=== PATIENT | female | born 1980 | race Caucasian/White ===

== ENCOUNTER 2017-07-22 02:24 | Emergency (ER) | payer OTHER ==
[2015-04-24 12:28] VITALS: Ht 167.6 cm; Wt 83.9 kg
[~2017-07-22] VITALS: Ht 167.6 cm; Wt 83.9 kg
[~2017-07-22 02:24] MED LIST: ADD25XRPT PO; AMOX-362 PO; AMOX-559 PO; AMOX500T10 PO; AZIT-1 PO; CEPH500C24 PO; CODE118S5 PO; CYCL10TA29 PO; DIVA500T98 PO; DOCU240C67 PO; FLUC150T40 PO; FLUO-202 PO; HYDR-4309 PO; IBUP-56 PO; LOR5/325 PO; MECL25TA9 PO; METH-543 PO; METH4TAB66 PO; NO ROUTINE MEDS; ONDA4TAB PO; OXYC-865 PO; PER PO; PRED-1 PO; ROBC PO; TOPI-119 PO; TOPI25CA13 PO; TRAZ-156 PO
--- NOTE | 2017-07-22 02:35 | ER Report ---
History and Physical Time Seen By MD: 02:33 Hx. of Stated Complaint: bright red bleeding, pain, tear HPI/ROS CHIEF COMPLAINT: Rectal bleeding HISTORY OF PRESENT ILLNESS: 30 [id number] female presents to the ER complaining of rectal pain. Her and her were experimenting with a rectal twice. Apparently the rectal point was lost up in her rectum. Her was able to grab it and pull it out but had to wing sticking out of each side, which caused significant trauma as it was removed to her rectal area. She passed some clots and had some cecily red bleeding. Bleeding is apparently stopped. Patient notes no abdominal pain. She only notes rectal pain. REVIEW OF SYSTEMS: Respiratory: No cough, no dyspnea. Cardiovascular: No chest pain, no palpitations. Gastrointestinal: No vomiting, no abdominal pain. Musculoskeletal: No back pain. Allergies: Coded Allergies: iodine (Verified Allergy, Severe, FIRST AND SECOND DEGREE RODRIGUEZ, 07/22/17) latex (Verified Allergy, Severe, HIVES, 07/22/17) prochlorperazine (Verified Allergy, Intermediate, hives, 07/22/17) Home Meds Active Scripts Oxycodone Hcl/Acetaminophen (PERCOCET 5-325 MG TABLET) 1 Each Tablet, 1 EACH PO Q4-6H Y for PAIN, #12 Prov:BLANKA MARIN DO 07/22/17 Cephalexin 500 Mg Tab (KEFLEX 500 MG TAB) 500 Mg Tablet, 500 MG PO TID for infection, #20 TAB Prov:BLANKA MARNI DO 07/22/17 Ondansetron (ZOFRAN ODT) 4 Mg Tab.rapdis, 4 MG PO Q6H Y for NAUSEA/VOMITING, # 20 TAB.DENISE 0 Refills Prov:CHAPO MIX MD 07/16/17 Hydrocodone Bit/Acetaminophen (HYDROCODON-ACETAMINOPHEN 5-325) 1 Each Tablet, 1 EACH PO Q4H Y for PAIN, #15 TAB 0 Refills Prov:CHAPO MIX MD 07/16/17 Hx Smoking: Yes Smoking Status: Former Smoker Exposure to Second Hand Smoke?: No Hx Substance Use Disorder: No Hx Alcohol Use: Yes Constitutional Vital Sign - Last 24 Hours 07/22/17 07/22/17 02:29 03:25 Temp 98.0 Pulse 84 Resp 16 B/P (MAP) 145/114 138/73 (94) Pulse Ox 94 O2 Delivery Room Air Physical Exam General Appearance: The patient is alert, has no immediate need for airway protection and no current signs of toxicity. Eyes: Pupils equal and round no injection. Respiratory: Chest is non tender, lungs are clear to auscultation. Cardiac: regular rate and rhythm Gastrointestinal: Abdomen is soft and non tender, no masses, bowel sounds normal. Rectal exam: There was some bruising on each side of the rectum. There was no cecily bleeding. There was pain on insertion of the finger. There are no internal hemorrhoids noted Musculoskeletal: Neck: Neck is supple and non tender. Extremities have full range of motion and are non tender. Skin: No rashes or lesions. DIFFERENTIAL DIAGNOSIS: After history and physical exam differential diagnosis was considered for rectal trauma Medical Decision Making ED Course/Re-evaluation ED Course Patient was admitted to an examination room. H&P was done. The dental diagnoses was considered. On conical examination. Patient has rectal trauma. I doubt there is perforation. She has benign nonsurgical abdominal examination. Patient be covered with Keflex. She'll be given Percocet for pain. She is advised to take stool softeners and follow clear liquid diet for 24 hours. Patient cautioned a low threshold return for any worsening, especially fevers or increasing abdominal pain. She was referred to general surgery. Decision to Disposition Date: Jul 22, 2017 Decision to Disposition Time: 03:10 Depart Departure Latest Vital Signs Vital Signs Date Time Temp Pulse Resp B/P (MAP) Pulse Ox O2 Delivery O2 Flow Rate FiO2 07/22/17 03:25 138/73 (94) 07/22/17 02:29 98.0 84 16 94 Room Air Impression: Primary Impression: Rectal tear Condition: Improved Disposition: HOME OR SELF-CARE Referrals: PENNIE MILLER DO (PCP) JOSHUA WALTERS MD New Scripts Oxycodone Hcl/Acetaminophen (PERCOCET 5-325 MG TABLET) 1 Each Tablet 1 EACH PO Q4-6H Y for PAIN, #12 Prov: BLANKA MARIN DO 07/22/17 Cephalexin 500 Mg Tab (KEFLEX 500 MG TAB) 500 Mg Tablet 500 MG PO TID for infection, #20 TAB Prov: BLANKA MARIN DO 07/22/17 Patient Instructions: Anal Fissure (ED) Additional Instructions: Take a stool softener such as Colace 100 mg twice daily Follow clear liquid diet for 24 hours Soaking in a bathtub of moderately warm water to soothe the area will help or applying a heating pad to your perineum Return to the ER for any fever or increasing abdominal pain Follow-up with general surgery Dr Walters if symptoms persist past 3-5 days BLANKA MARIN DO Jul 22, 2017 02:35
[2017-07-22] MEDS ORDERED: CEPHALEXIN MONO 500 MG CAP PO ONE (03:10)
[2017-07-22] MEDS ORDERED: oxyCODONE/ACETAMIN 5/325MG TH 2 TAB/BOTTLE PO ONE (03:10)
[2017-07-22] MEDS ORDERED: CEPH500T7 PO (03:12)
[2017-07-22] MEDS ORDERED: OXYC-865 PO (03:12)
[2017-07-22 03:25] VITALS: BP 138/73
== END 2017-07-22 03:33 | disposition home or self-care (01) ==
LOC: ER 02:27
DX: S36.63XA Laceration of rectum, initial encounter (principal)
CPT/HCPCS: 99282

== ENCOUNTER 2017-08-13 11:38 | Emergency (ER) | payer OTHER ==
[2015-04-24 12:28] VITALS: Ht 167.6 cm; Wt 83.9 kg
[~2017-08-13] VITALS: Ht 167.6 cm; Wt 83.9 kg
[~2017-08-13 11:38] MED LIST changes: +CEPH500T7 PO
--- NOTE | 2017-08-13 11:50 | ER Report ---
History and Physical Time Seen By MD: 11:48 Hx. of Stated Complaint: RIGHT FLANK PAIN THAT RADIATES AROUND TO THE GROIN. SENT BY URGENT CARE HPI/ROS CHIEF COMPLAINT: Right flank pain HISTORY OF PRESENT ILLNESS: This is a 36-year-old female who presents to the emergency department for right flank pain. Patient states she was at urgent care this morning and was sent here for further evaluation for possible kidney stone. Patient states that over the last week she's had some suprapubic discomfort on the right side and now the pain would last 4 days has moved up to the right flank. Patient also states that she's had intermittent diarrhea with stool that looks like it's gotten coffee grounds in it. Patient also states that she does not feel that this was related to the recent rectal trauma that she had 2 weeks prior. Patient denies nausea, vomiting, fevers, aches, chills and no dysuria. REVIEW OF SYSTEMS: Constitutional: No fever, no chills. Eyes: No discharge. ENT: No sore throat. Cardiovascular: No chest pain, no palpitations. Respiratory: No cough, no shortness of breath. Gastrointestinal: As above. Genitourinary: No hematuria. Musculoskeletal: As above. Skin: No rashes. Neurological: No headache. Allergies: Coded Allergies: iodine (Verified Allergy, Severe, FIRST AND SECOND DEGREE RODRIGUEZ, 07/22/17) latex (Verified Allergy, Severe, HIVES, 07/22/17) prochlorperazine (Verified Allergy, Intermediate, hives, 07/22/17) Home Meds Discontinued Scripts Oxycodone Hcl/Acetaminophen (PERCOCET 5-325 MG TABLET) 1 Each Tablet, 1 EACH PO Q4-6H Y for PAIN, #12 Prov:BLANKA MARIN DO 07/22/17 Cephalexin 500 Mg Tab (KEFLEX 500 MG TAB) 500 Mg Tablet, 500 MG PO TID for infection, #20 TAB Prov:BLANKA MARIN DO 07/22/17 Ondansetron (ZOFRAN ODT) 4 Mg Tab.rapdis, 4 MG PO Q6H Y for NAUSEA/VOMITING, # 20 TAB.DENISE 0 Refills Prov:CHAPO MIX MD 07/16/17 Hydrocodone Bit/Acetaminophen (HYDROCODON-ACETAMINOPHEN 5-325) 1 Each Tablet, 1 EACH PO Q4H Y for PAIN, #15 TAB 0 Refills Prov:MARIA DEL ROSARIOCHAPO MD 07/16/17 Past Medical/Surgical History She has a past medical and surgical history of migraines, pneumonia, 2, 3 vaginal deliveries, depression, bipolar, anxiety, recent tooth extraction, tonsillectomy, moles removed. Reviewed Nurses Notes: Yes Hx Smoking: Yes Smoking Status: Former Smoker Exposure to Second Hand Smoke?: No Hx Substance Use Disorder: No Hx Alcohol Use: Yes Constitutional Vital Sign - Last 24 Hours 08/13/17 08/13/17 11:45 15:14 Temp 97.6 Pulse 82 73 Resp 16 B/P (MAP) 140/113 139/102 (114) Pulse Ox 95 95 O2 Delivery Room Air Room Air Physical Exam General Appearance: The patient is alert, has no immediate need for airway protection and no signs of toxicity. Eyes: Pupils equal and round no pallor or injection. ENT, Mouth: Mucous membranes are moist. Respiratory: There are no retractions, lungs are clear to auscultation. Cardiovascular: Regular rate and rhythm, no murmurs, clicks or rubs. Gastrointestinal: Abdomen is round and soft with tenderness to the suprapubic area and right upper and lower throat discomfort with palpation, no masses, bowel sounds normal. Neurological: Alert and oriented 4. Moving all extremities. Following all commands. No focal neuro deficits. Skin: Warm and dry, no rashes. Musculoskeletal: Neck is supple non tender. Right CVA tenderness. Extremities are nontender, nonswollen and have full range of motion. DIFFERENTIAL DIAGNOSIS: After history and physical exam differential diagnosis was considered for abdominal pain in a female including but not limited to ovarian cyst, pelvic inflammatory disease, ovarian torsion, urinary tract infection, and appendicitis, kidney stone. Medical Decision Making Data Points Result Diagram: 08/13/17 1208 08/13/17 1208 Laboratory Hematology Test 08/13/17 12:08 Red Blood Count 5.07 M/uL (4.17-5.56) Mean Corpuscular Volume 86.6 fL (80.0-96.0) Mean Corpuscular Hemoglobin 29.5 pg (26.0-33.0) Mean Corpuscular Hemoglobin Concent 34.1 g/dL (32.0-36.0) Red Cell Distribution Width 13.5 % (11.5-14.5) Mean Platelet Volume 8.1 fL (7.2-11.1) Neutrophils (%) (Auto) 52.5 % (39.4-72.5) Lymphocytes (%) (Auto) 38.4 % (17.6-49.6) Monocytes (%) (Auto) 6.1 % (4.1-12.4) Eosinophils (%) (Auto) 1.7 % (0.4-6.7) Basophils (%) (Auto) 1.3 % (0.3-1.4) Nucleated RBC Relative Count (auto) 0.6 /100WBC Neutrophils # (Auto) 3.2 K/uL (2.0-7.4) Lymphocytes # (Auto) 2.3 K/uL (1.3-3.6) Monocytes # (Auto) 0.4 K/uL (0.3-1.0) Eosinophils # (Auto) 0.1 K/uL (0.0-0.5) Basophils # (Auto) 0.1 K/uL (0.0-0.1) Nucleated RBC Absolute Count (auto) 0.04 K/uL Sodium Level 143 mmol/L (137-145) Potassium Level 3.6 mmol/L (3.5-5.0) Chloride Level 106 mmol/L (98-107) Carbon Dioxide Level 25 mmol/L (22-31) Blood Urea Nitrogen 10 mg/dl (7-18) Creatinine 0.70 mg/dl (0.52-1.04) Glomerular Filtration Rate Calc > 60.0 Random Glucose 85 mg/dl (75-110) Calcium Level 9.3 mg/dl (8.4-10.2) Total Bilirubin 0.6 mg/dl (0.2-1.3) Aspartate Amino Transf (AST/SGOT) 18 U/L (0-35) Alanine Aminotransferase (ALT/SGPT) 18 U/L (0-56) Alkaline Phosphatase 55 U/L (0-126) Total Protein 7.6 gm/dl (6.3-8.2) Albumin 4.2 g/dl (3.5-5.0) Chemistry Test 08/13/17 12:08 White Blood Count 6.0 k/uL (4.5-11.0) Red Blood Count 5.07 M/uL (4.17-5.56) Hemoglobin 15.0 g/dL (12.0-16.0) Hematocrit 43.9 % (34.0-47.0) Mean Corpuscular Volume 86.6 fL (80.0-96.0) Mean Corpuscular Hemoglobin 29.5 pg (26.0-33.0) Mean Corpuscular Hemoglobin Concent 34.1 g/dL (32.0-36.0) Red Cell Distribution Width 13.5 % (11.5-14.5) Platelet Count 303 K/uL (150-450) Mean Platelet Volume 8.1 fL (7.2-11.1) Neutrophils (%) (Auto) 52.5 % (39.4-72.5) Lymphocytes (%) (Auto) 38.4 % (17.6-49.6) Monocytes (%) (Auto) 6.1 % (4.1-12.4) Eosinophils (%) (Auto) 1.7 % (0.4-6.7) Basophils (%) (Auto) 1.3 % (0.3-1.4) Nucleated RBC Relative Count (auto) 0.6 /100WBC Neutrophils # (Auto) 3.2 K/uL (2.0-7.4) Lymphocytes # (Auto) 2.3 K/uL (1.3-3.6) Monocytes # (Auto) 0.4 K/uL (0.3-1.0) Eosinophils # (Auto) 0.1 K/uL (0.0-0.5) Basophils # (Auto) 0.1 K/uL (0.0-0.1) Nucleated RBC Absolute Count (auto) 0.04 K/uL Glomerular Filtration Rate Calc > 60.0 Calcium Level 9.3 mg/dl (8.4-10.2) Total Bilirubin 0.6 mg/dl (0.2-1.3) Aspartate Amino Transf (AST/SGOT) 18 U/L (0-35) Alanine Aminotransferase (ALT/SGPT) 18 U/L (0-56) Alkaline Phosphatase 55 U/L (0-126) Total Protein 7.6 gm/dl (6.3-8.2) Albumin 4.2 g/dl (3.5-5.0) EKG/Imaging Imaging PATIENT NAME: Venecia Alonso : 1980 MR: [id number] V: [id number] EXAM DATE: ORDERING PHYSICIAN: DUARTE CASTRO TECHNOLOGIST: [place] [facility] [place] Venecia Alonso : 1980 Visit/Account:[id number] Date of Sevice: 08/13/2017 COMPUTED TOMOGRAPHY OF THE Abdomen and Pelvis without CONTRAST INDICATION: Flank pain.. TECHNIQUE: Contiguous axial 2.[address] images were obtained through the abdomen and pelvis without contrast. Coronal and sagittal reformatted images were submitted. COMPARISON: None. FINDINGS: Lung bases: There is a calcified granuloma at the right lung base. Liver and hepatic vasculature: The right lobe of the liver is enlarged measuring just under 20 cm craniocaudal. The tip of the right lobe is blunted. Gallbladder and bile ducts: There are stones within the gallbladder. No biliary duct dilation. Spleen: A splenic calcification may reflect an old granulomatous process. Pancreas: Normal Adrenals: Normal Kidneys, ureters and bladder: There is a 7 mm stone in the proximal right ureter at the ureter-pelvic junction. Mild dilation of the collecting system on the right. Normal-appearing bladder. Retroperitoneum and aorta: Normal caliber aorta. Scattered atherosclerosis. GI tract, mesentery and peritoneum: No bowel obstruction. No free fluid or free air. A few mesenteric lymph nodes are mildly prominent in the right lower quadrant. Uterus and adnexa: Tubal ligation clips are noted. No abnormal fluid collection or mass. Bones and soft tissues: No acute osseous abnormality. There is a small fat- containing paraumbilical hernia. IMPRESSION: 7 mm calculus at the right results in mild calyceal dilation. One of the following dose optimization techniques was utilized in the performance of this exam: Automated exposure control; adjustment of the mA and/ or kV according to the patient's size; or use of an iterative reconstruction technique. Specific details can be referenced in the facility's radiology CT exam operational policy. Report Dictated By: Jackie Barajas MD at 08/13/2017 1:06 PM Report E-Signed By: Jackie Barajas MD at 08/13/2017 1:15 PM WSN:[id number] ED Course/Re-evaluation Clinical Indication for ER IV: IV Access ED Course The patient was admitted to room. History and physical were obtained. Differential diagnoses were considered. An IV was started. A CBC, CMP and UA were obtained which were unremarkable. A CT of the abdomen and pelvis were obtained showing a 7 mm right calculi at the ureteropelvic junction. I did review these results with the patient. I also contacted Dr. Hernandez a urologist in [place] regarding the patient's case he said that she would be fine going home that this is not something that she needs surgery for however she would need to follow-up with one of our local urologists. We didn't have urology on- call today therefore this is the rationale for calling [place] [facility]. The patient was given in the option of anti-inflammatories as well as pain medication which she declined she said she would take ibuprofen at home for the discomfort. The patient was instructed to follow-up with Dr. Navid Sykes this week patient expressed understanding and had no other questions or concerns and was discharged home. We did get the urinalysis results from urgent care which is showing no infection , with lots of blood, they also did a test which was negative, and negative for occult stool. Decision to Disposition Date: Aug 13, 2017 Decision to Disposition Time: 15:05 Depart Departure Latest Vital Signs Vital Signs Date Time Temp Pulse Resp B/P (MAP) Pulse Ox O2 Delivery O2 Flow Rate FiO2 08/13/17 15:14 73 139/102 (114) 95 Room Air 08/13/17 11:45 97.6 16 Impression: Primary Impression: Kidney stone Condition: Improved Disposition: HOME OR SELF-CARE Referrals: PENNIE MILLER DO (PCP) CHENTE FLYNN MD, ZACHARY D DO New Scripts No Active Prescriptions or Reported Meds Departure Forms: ER Transition Record, Medications Reconciliation, Patient Portal Information Patient Instructions: Kidney Stones (ED) Additional Instructions: Drink plenty of fluids. Get plenty of rest. Take 600-800mg ibuprofen every 6-8 hours. Follow up with Dr. Garner or Dr. Flynn this week for follow up. Please strain your urine to look for the stone. May return to ED for worsening symptoms. DUARTE CASTRO RADIATION / CHEMISTRY TECHNICIAN-BC Aug 13, 2017 11:50
[2017-08-13 12:20] LABS: PLATELET COUNT, AUTOMATED 303 K/uL (150-450)
--- NOTE | 2017-08-13 13:20 | RADIOLOGY IMAGING REPORT ---
FACILITY: [facility] PATIENT NAME: Venecia Alonso : 1980 MR: [id number] V: [id number] EXAM DATE: ORDERING PHYSICIAN: DUARTE CASTRO TECHNOLOGIST: Location: [facility] - [place] Patient: Venecia Alonso : 1980 Visit/Account:[id number] Date of Sevice: 08/13/2017 COMPUTED TOMOGRAPHY OF THE Abdomen and Pelvis without CONTRAST INDICATION: Flank pain.. TECHNIQUE: Contiguous axial 2.[address] images were obtained through the abdomen and pelvis without co ntrast. Coronal and sagittal reformatted images were submitted. COMPARISON: None. FINDINGS: Lung bases: There is a calcified granuloma at the right lung base. Liver and hepatic vasculature: The right lobe of the liver is enlarged measuring just under 20 cm cr aniocaudal. The tip of the right lobe is blunted. Gallbladder and bile ducts: There are stones within the gallbladder. No biliary duct dilation. Spleen: A splenic calcification may reflect an old granulomatous process. Pancreas: Normal Adrenals: Normal Kidneys, ureters and bladder: There is a 7 mm stone in the proximal right ureter at the ureter-pelvi c junction. Mild dilation of the collecting system on the right. Normal-appearing bladder. Retroperitoneum and aorta: Normal caliber aorta. Scattered atherosclerosis. GI tract, mesentery and peritoneum: No bowel obstruction. No free fluid or free air. A few mesenteric lymph nodes are mildly prominent in the right lower quadrant. Uterus and adnexa: Tubal ligation clips are noted. No abnormal fluid collection or mass. Bones and soft tissues: No acute osseous abnormality. There is a small fat-containing paraumbilical h ernia. IMPRESSION: 7 mm calculus at the right ureteropelvic junction results in mild calyceal dilation. One of the following dose optimization techniques was utilized in the performance of this exam: Autom ated exposure control; adjustment of the mA and/or kV according to the patient's size; or use of an i terative reconstruction technique. Specific details can be referenced in the facility's radiology C T exam operational policy. Report Dictated By: Jackie Barajas MD at 08/13/2017 1:06 PM Report E-Signed By: Jackie Barajas MD at 08/13/2017 1:15 PM WSN:[id number]
[2017-08-13] MEDS ORDERED: KETOROLAC 30 MG/ML VIAL IVP ONE (15:05)
[2017-08-13 15:14] VITALS: BP 139/102
[2017-08-15] MEDS ORDERED: HYDR-4309 PO (13:33)
== END 2017-08-13 15:35 | disposition home or self-care (01) ==
LOC: ER 11:48
DX: N20.0 Calculus of kidney (principal)
CPT/HCPCS: 74176; 85025; 96374; 99283; J1885; 82040; 82247; 82310; 82374; 82435; 82565; 82947; 84075; 84132; 84155; 84295; 84450; 84460; 84520

== ENCOUNTER 2017-08-16 01:35 | Day surgery (SDC) | payer OTHER ==
[2015-04-24 12:28] VITALS: Ht 167.6 cm; Wt 83.9 kg
--- NOTE | 2017-08-15 14:21 | HISTORY AND PHYSICAL ---
DATE OF ADMISSION: August 16, 2017 CHIEF COMPLAINT Right kidney stone. HISTORY OF PRESENT ILLNESS The patient is otherwise a healthy 36-year-old white female who was seen in the Emergency Department on the of this month with sudden onset of right flank pain. She was evaluated with a CT scan of the abdomen which revealed a 6 x 5 x 6 mm obstructing stone at the right UPJ with a mild calyceal dilation above. There were no other calcifications in the kidneys or along the course of the ureters. When seen in the Urology Clinic on the , she was still having significant pain and was unable to perform normal duties secondary to the discomfort. She did not have any objective fever or significant nausea or vomiting. Films were shown to the patient, and options were discussed. Given its size and the location, I felt that there was only 50/50 chance of this stone spontaneously passing in the next few days to weeks. The patient was anxious to have relief of her pain since it was significantly limiting her activities. Options of ureteroscopy with stent placement versus extracorporeal shock wave lithotripsy were discussed. The lithotripsy machine is not available for approximately a week, and the patient desired sooner intervention and has, therefore, elected to undergo right ureteroscopy, stone manipulation, and possible stent placement. PAST MEDICAL HISTORY 1. Bipolar with anxiety and depression. 2. Chronic headaches. PAST SURGICAL HISTORY 1. times two. 2. Hysterectomy 2015 with a bladder neck sling. CURRENT MEDICATIONS None. ALLERGIES BETADINE and LATEX. FAMILY HISTORY Noncontributory. REVIEW OF SYSTEMS The patient denied a bleeding disorder, chest pain, productive cough, fever, chills, gross hematuria, prior stones, or urinary tract infections. PHYSICAL EXAMINATION GENERAL: The patient is a well-developed, well-nourished, white female in no acute distress. HEENT: Normocephalic, atraumatic. CHEST: Clear to auscultation bilaterally. CARDIOVASCULAR: Regular rate and rhythm. ABDOMEN: Soft, nontender. No masses are palpated. GENITOURINARY: Deferred to the OR. EXTREMITIES: Without clubbing, cyanosis, or edema. NEUROLOGIC: Nonfocal. IMPRESSION A 36-year-old white female with obstructing right proximal ureteral stone measuring approximately 6 x 5 x 6 mm. PLAN We will perform anesthetic cystoscopy with right ureteroscopy and/or stent placement. [facility]
[~2017-08-16] VITALS: Ht 167.6 cm; Wt 83.9 kg
[2017-08-16] MEDS ORDERED: IOPAMIDOL-200 50 ML VIAL IS ONE (07:29)
[2017-08-16 09:06] VITALS: BP 143/113
[2017-08-16 09:15] VITALS: BP 132/100
[2017-08-16] MEDS ORDERED: LIDOCAINE/SOD BICARB 8.4% SYR ID ONE (09:30)
[2017-08-16] MEDS ORDERED: MIDAZOLAM 2 MG/2 ML VIAL IVP PRN (09:30)
[2017-08-16] MEDS ORDERED: FAMOTIDINE 20 MG TAB PO ONE (09:30)
[2017-08-16] MEDS ORDERED: ceFAZolin(*) 1 GM VIAL 1 GM in NS(*) 0.9% 100 ML ADDVANT BAG 100 ML IV ONE (09:30)
[2017-08-16] MEDS ORDERED: NORMOSOL R SOLN(*) 1000 ML BAG 1,000 ML IV PRN (09:30)
[2017-08-16] MEDS ORDERED: DEXAMETHASONE SOD PHOS 10MG/ML ONE (10:03)
[2017-08-16] MEDS ORDERED: ONDANSETRON 4 MG/2 ML VIAL ONE ×2 (10:03→12:31)
[2017-08-16] MEDS ORDERED: LIDOCAINE MPF 1% 5 ML VIAL ONE (10:03)
[2017-08-16] MEDS ORDERED: fentaNYL CITR 100 MCG/2 ML AMP ONE ×2 (10:03→11:08)
[2017-08-16] MEDS ORDERED: PROPOFOL EMUL(*) 10MG/ML 20 ML 20 ML ONE (10:03)
[2017-08-16] MEDS ORDERED: [UNRECOGNIZED DRUG - OTHER] IVP ONE (10:10)
[2017-08-16] MEDS ORDERED: DEXTROSE 5% IVP ONE (10:10)
[2017-08-16] MEDS ORDERED: DEXTROSE 5% PO ONE (10:10)
[2017-08-16] MEDS ORDERED: [UNRECOGNIZED DRUG - OTHER] PO ONE (10:10)
[2017-08-16] MEDS ORDERED: DESFLURANE 240 ML BTL INH ONE (10:31)
[2017-08-16] MEDS ORDERED: BELLADONNA ALK/OPIUM 60MG SUPP PR ONE (10:33)
[2017-08-16] MEDS ORDERED: KETOROLAC 30 MG/ML VIAL ONE (10:35)
[2017-08-16] MEDS ORDERED: NS 0.9% 3000 ML IRRIGATION BAG IR ONE (11:02)
[2017-08-16] MEDS ORDERED: HYDR-4309 PO (11:17)
[2017-08-16] MEDS ORDERED: TAMS0.4C25 PO (11:18)
[2017-08-16] MEDS ORDERED: IBUP600T22 PO (11:19)
[2017-08-16] MEDS ORDERED: PHEN200T32 PO (11:19)
[2017-08-16] MEDS ORDERED: OXYB15TA17 PO (11:20)
[2017-08-16] MEDS ORDERED: DOCU-416 PO (11:20)
[2017-08-16 12:30] VITALS: BP 139/97
[2017-08-16 12:45] VITALS: BP 139/93
[2017-08-16 12:47] VITALS: BP 133/108
[2017-08-16] MEDS ORDERED: APAP/HYDROCODONE 325/5 TAB PO ONE (13:10)
--- NOTE | 2017-08-16 14:06 | RADIOLOGY IMAGING REPORT ---
FACILITY: [facility] PATIENT NAME: Venecia Alonso : 1980 MR: [id number] V: [id number] EXAM DATE: ORDERING PHYSICIAN: MAI COTTO TECHNOLOGIST: Location: [facility] Patient: Venecia Alonso : 1980 Visit/Account:[id number] Date of Sevice: 08/16/2017 Exam type: RETROGRADE PYELOGRAM History: HEMATURIA, STONES, stent placement Comparison: CT abdomen pelvis August 13, 2017. Findings: 88 fluoroscopic spot images were submitted for interpretation. The total prostate be time was one mi nute.. Multiple images demonstrate contrast in the right renal collecting system and right ureter which do n ot appear dilated. On the final images a right ureteral stent was placed IMPRESSION: 1. As above Report Dictated By: Karrie Walter MD at 08/16/2017 1:59 PM Report E-Signed By: Karrie Walter MD at 08/16/2017 2:03 PM WSN:[id number]
--- NOTE | 2017-08-16 18:02 | OPERATIVE REPORT 1 ---
EVENT DATE: August 16, 2017 SURGEON: Tanner Sykes MD ANESTHESIOLOGIST: Patrick Cortés MD ANESTHESIA: General anesthetic. PREOPERATIVE DIAGNOSIS Right ureteropelvic junction/ureteral stone. POSTOPERATIVE DIAGNOSIS Right ureteropelvic junction/ureteral stone. PROCEDURES PERFORMED 1. Cystoscopy. 2. Right retrograde pyelogram. 3. Right semi-rigid ureteroscopy. 4. Right internal double-J stent ureteral stent placement. ESTIMATED BLOOD LOSS 5 mL INTRAVENOUS FLUIDS Crystalloid. DRAINS A 6-Slovak x 28 cm Contour stent on right. PATHOLOGY None. COMPLICATIONS None. CONDITION The patient was taken to the recovery room awake and in stable condition. STATEMENT OF MEDICAL NECESSITY The patient is a 36-year-old white female who recently presented to the Emergency Room with right ureteral colic and was found to have a 7 mm obstructing stone at the UPJ. She has continued to have significant pain and discomfort and desires treatment. She is now being brought to the operating room for planned cystoscopy, ureteroscopy, and stent placement as indicated. DESCRIPTION OF PROCEDURE PERFORMED The patient was brought to the operating room. After general anesthetic was obtained, she was placed in the dorsal lithotomy position and prepped and draped in the usual sterile manner. Anesthetic cystoscopy was performed with the 21-Slovak rigid sheath and 30-degree lens. Her urethra was normal. Her bladder had a midline cystocele defect. She had slit-like ureteral orifices, both effluxing clear urine. The right ureteral orifice was cannulated with a 6- Slovak opening access catheter, and this was advanced approximately 5 cm inside the ureteral orifice, and a retrograde pyelogram was performed. Her ureter appeared normal as well as the intrarenal collecting system. There was perhaps very mild blunting of the calices, but no significant hydronephrosis. There was a faint filling defect at the UPJ area consistent with her stone. At this point, a 0.035 wire was advanced into the lumen of the access catheter and advanced up the ureter where it was curled in an upper pole calyx. The access catheter was removed, and the wire was then used to place an 18 dilating system. The 10 sheath was then used to place a second wire next to the first wire inside the 18 sheath. The 10 sheath was removed. One wire was secured to the drapes as a safety wire. The next wire was backloaded into the Zhao semi- rigid ureteroscope. A retrograde ureteroscopy was performed over the working wire. Excellent visualization of the ureter was obtained from the ureteral orifice to just above the vessels. At this point, a significant resistance from the ureteral diameter was becoming more apparent. There was no stone or evidence of injury along the ureter on advancement or on pull-out ureteroscopy. Given the size and location of the stone, it was felt that a ureteral access sheath would be of benefit. An 11 x 13 access sheath was opened and placed over the working wire. Under fluoroscopic imaging, an attempt was made to guide it up the ureter; however, it only advanced approximately 5 to 6 cm past the ureteral orifice where significant resistance was encountered. It could not be advanced further and kept curling in the bladder. Given the small size of the ureteral lumen, it was felt best to place a stent to relieve the obstruction and provide passive ureteral dilation, to return in 10 to 14 days for definitive treatment. Therefore, the ureteral access sheath and working wire were removed. The safety wire was then backloaded into the cystoscopic sheath, and this was used to place a 6 x 28 cm Contour stent. Good coiling was noted in the renal pelvis by fluoroscopy, and good coiling in the bladder was noted by direct vision. The patient's bladder was drained through the cystoscopic sheath. She was given a B and O suppository at the conclusion of the case. She was awakened in the operating room and taken to the recovery area in stable condition. PLAN The plan will be to allow the patient to be discharged home today on Semora, Motrin, Colace, Flomax, Ditropan XL, and Pyridium. We will have her return to the operating room on the 27 of August for possible extracorporeal shock wave lithotripsy and/or ureteroscopy with stent removal. JOSELINE
== END 2017-08-16 12:30 | disposition home or self-care (01) ==
LOC: OR 01:35
PROVIDERS: ATTEND Urology
DX: N20.1 Calculus of ureter (principal)
CPT/HCPCS: 52005; 52332; 74420; 87088; C2617; J0690; J1100; J1885; J2001; J2250; J2405; J2704; J3010; J7050; J7060; Q9966

== ENCOUNTER → 2017-08-21 | Outpatient (CLI) | payer OTHER, MEDICAID ==
[2015-04-24 12:28] VITALS: BMI 29.5
[~2017-08-21] MED LIST changes: +DOCU-416 PO; +IBUP600T22 PO; +OXYB15TA17 PO; +PHEN200T32 PO; +TAMS0.4C25 PO
--- NOTE | 2017-08-21 14:16 | RADIOLOGY IMAGING REPORT ---
FACILITY: [facility] - [place] PATIENT NAME: Venecia Alonso : 1980 MR: [id number] V: [id number] EXAM DATE: ORDERING PHYSICIAN: MAI COTTO TECHNOLOGIST: Location: [facility] Patient: Venecia Alonso : 1980 Visit/Account:[id number] Date of Sevice: 08/21/2017 KUB SINGLE VIEW ABDOMEN History: Evaluate stent placement COMPARISON: 08/16/2017, 08/13/2012 Findings: Single view provided. A right nephroureteral stent remains in good position. A stone prev iously at the UPJ appears to have reflux back into the lower pole renal calyx. Bowel gas pattern is nonobstructive. IMPRESSION: The right nephroureteral stent remains in good position. Report Dictated By: Galindo Angelo MD at 08/21/2017 2:10 PM Report E-Signed By: Galindo Angelo MD at 08/21/2017 2:12 PM WSN:[email or web address]
== END ==
LOC: RAD 13:27
PROVIDERS: ATTEND Urology
DX: N20.1 Calculus of ureter (principal); Z96.89 Presence of other specified functional implants
CPT/HCPCS: 74018

== ENCOUNTER 2017-08-23 00:28 | Day surgery (SDC) | payer OTHER, MEDICAID ==
[2015-04-24 12:28] VITALS: Ht 167.6 cm; Wt 84.8 kg
--- NOTE | 2017-08-22 13:59 | HISTORY AND PHYSICAL ---
DATE OF ADMISSION: August 23, 2017 CHIEF COMPLAINT Kidney stones. HISTORY OF PRESENT ILLNESS Patient is a 36-year-old white female who originally presented to the emergency room on August 13, 2017 with right renal colic and was found to have a 6 x 6 x 5 mm right UPJ stone. The patient was having significant discomfort with associated nausea but no vomiting, and she was originally taken to the operating room on August 16, 2017. At that time, ureteroscopy was attempted. However, her ureter was not of adequate caliber to introduce a ureteral access sheath to obtain good access to her proximal ureter and renal pelvis. Therefore , a 6 Luxembourgish x 28 cm Contour stent was placed on the right side with her planned returned to the operating room for August 27, 2017. However, she began to experience increasing flank and bladder discomfort consistent with stent pain. A KUB performed on August 21, 2017 revealed she had good stent placement, and her stone had been pushed back up into the kidney and was in the lower pole calyx. She is now being brought to the operating room for planned right extracorporeal shockwave lithotripsy with right stent removal secondary to her significant stent discomfort. I have discussed with the patient that she still may have some residual ureteral edema after stent removal, being the fact that she has only been stented 7 days and that she may need stent replacement if this occurs and does not fairly rapidly resolve. She understands and wishes to proceed with planned procedure. PAST MEDICAL HISTORY * Bipolar with anxiety and depression. * Chronic headaches. * Kidney stones as per HPI. PAST SURGICAL HISTORY * C section x 2. * Hysterectomy with bladder neck sling. * Right ureteroscopy with stent placement August 16, 2017. ALLERGIES BETADINE and LATEX. CURRENT MEDICATIONS * Lortab. * Colace. * Ditropan XL. * Flomax. * Motrin p.r.n. FAMILY HISTORY Noncontributory. REVIEW OF SYSTEMS Patient denies chest pain, productive cough, fever, chills, bleeding disorder, liver disease or change in bowel habits. PHYSICAL EXAMINATION GENERAL: Patient is a well-developed, well-nourished white female in no acute distress. HEENT: Normocephalic, atraumatic. CHEST: Clear to auscultation bilaterally. CARDIOVASCULAR EXAM: Regular rate and rhythm. ABDOMINAL EXAM: Soft, nontender, no masses are palpated. EXAM: Deferred to the OR. EXTREMITY EXAM: Without clubbing, cyanosis or edema. NEUROLOGIC EXAM: Nonfocal. IMPRESSION A 36-year-old white female with a 6 x 5 mm stone in the right lower pole with current indwelling stent with a significant stent discomfort one week status post placement. PLAN We will perform right extracorporeal shockwave lithotripsy followed by stent removal. JOSELINE
[~2017-08-23] VITALS: Ht 167.6 cm; Wt 84.8 kg
[2017-08-23] MEDS ORDERED: IOPAMIDOL-200 50 ML VIAL IS ONE (07:34)
[2017-08-23 07:37] VITALS: BP 153/98
[2017-08-23 07:51] LABS: INR 0.9
[2017-08-23] MEDS ORDERED: fentaNYL CITR 250 MCG/5 ML AMP ONE (08:09)
[2017-08-23] MEDS ORDERED: DEXAMETHASONE SOD PHOS 10MG/ML ONE (08:10)
[2017-08-23] MEDS ORDERED: PROPOFOL EMUL(*) 10MG/ML 20 ML 60 ML ONE (08:10)
[2017-08-23] MEDS ORDERED: ONDANSETRON 4 MG/2 ML VIAL ONE (08:10)
[2017-08-23] MEDS ORDERED: LIDOCAINE MPF 1% 5 ML VIAL ONE (08:10)
[2017-08-23] MEDS ORDERED: KETOROLAC 30 MG/ML VIAL ONE (08:14)
[2017-08-23] MEDS ORDERED: SCOPOLAMINE 1.5 MG PATCH TD ONE (08:15)
[2017-08-23] MEDS ORDERED: FAMOTIDINE 20 MG TAB PO ONE (08:20)
[2017-08-23] MEDS ORDERED: ceFAZolin(*) 2GM/D5W 50ML 50 ML IVPB ONE (08:20)
[2017-08-23] MEDS ORDERED: LIDOCAINE/SOD BICARB 8.4% SYR ID ONE (08:20)
[2017-08-23] MEDS ORDERED: MIDAZOLAM 2 MG/2 ML VIAL IVP PRN (08:20)
[2017-08-23] MEDS ORDERED: NORMOSOL R SOLN(*) 1000 ML BAG 1,000 ML IV PRN (08:20)
[2017-08-23] MEDS ORDERED: fentaNYL CITR 100 MCG/2 ML AMP IVP PRN (08:25)
--- NOTE | 2017-08-23 08:25 | RADIOLOGY IMAGING REPORT ---
FACILITY: [facility] - [place] PATIENT NAME: Venecia Alonso : 1980 MR: [id number] V: [id number] EXAM DATE: ORDERING PHYSICIAN: MAI COTTO TECHNOLOGIST: Location: [facility] [place] Patient: Venecia Alonso : 1980 Visit/Account:[id number] Date of Sevice: 08/23/2017 Exam type: KUB SINGLE VIEW ABDOMEN History: KIDNEY STONES Comparison: August 21, 2017. Findings: Bowel gas pattern is nonspecific. Right double pigtail ureteral stent is again noted. There is a ca lculus projecting over the lower pole the right kidney unchanged when compared the prior examination. Tubal ligation clips are noted within the pelvis. IMPRESSION: 1. Right ureteral stent appears unchanged in position Lower pole right-sided nephrolithiasis unchanged Report Dictated By: Karrie Walter MD at 08/23/2017 8:19 AM Report E-Signed By: Karrie Walter MD at 08/23/2017 8:21 AM WSN:[email or web address]
[2017-08-23] MEDS ORDERED: LIDOCAINE 2% JELLY 5 ML TUBE ONE (08:32)
[2017-08-23] MEDS ORDERED: PROPOFOL EMUL(*) 10MG/ML 20 ML 20 ML ONE (10:04)
[2017-08-23] MEDS ORDERED: BELLADONNA ALK/OPIUM 60MG SUPP PR ONE (10:07)
[2017-08-23] MEDS ORDERED: APAP/HYDROCODONE 325/5 TAB ONE (11:07)
[2017-08-23 11:29] VITALS: BP 136/96
[2017-08-23 11:39] VITALS: BP 131/102
[2017-08-23 11:40] VITALS: BP 127/91
--- NOTE | 2017-08-23 17:52 | OPERATIVE REPORT 1 ---
EVENT DATE: August 23, 2017 SURGEON: Tanner Sykes MD ANESTHESIOLOGIST: Dada Jolley MD ANESTHESIA: General anesthetic. PREOPERATIVE DIAGNOSIS Right lower pole renal calculus with indwelling right ureteral stent. POSTOPERATIVE DIAGNOSIS Right lower pole renal calculus with indwelling right ureteral stent. PROCEDURES PERFORMED 1. Right extracorporeal shock wave lithotripsy of lower pole 6 x 6 mm calculus. 2. Cystoscopy with grasping and removal of right internal double-J ureteral stent. ESTIMATED BLOOD LOSS Minimal. INTRAVENOUS FLUIDS Crystalloids. DRAINS None. COMPLICATIONS None. CONDITION The patient was taken to the recovery room awake and in stable condition. STATEMENT OF MEDICAL NECESSITY The patient is a 36-year-old white female who originally presented to the Emergency Room with right renal colic. She was found to have an obstructing 6 x 6 mm stone at the UPJ. One week ago, she underwent attempted ureteroscopy, followed by stent placement. In followup, she was noted to have increasing stent discomfort which the patient described as debilitating despite maximum use of medications to control her pain. KUB performed showed the stone had been pushed back into the lower pole calyx. Her stent was in good position. She was originally scheduled to undergo followup ESWL and ureteroscopy on the of this month; however, given her increasing pain and discomfort which have been unbearable by her report, we have elected to move this up four days. She understands that removal of the stent in this timeframe may result in some remaining ureteral edema which could require stent replacement. DESCRIPTION OF OPERATION PERFORMED The patient was brought to the operating room. After general anesthetic was obtained, she was placed supine on the lithotripsy table. Her right lower pole stone was visualized with fluoroscopy. It was placed in the lithotripsy crosshairs in two planes. Treatment was begun at a power setting of 2 and gradually increased to a power setting of 3 over the course of the first 300 shocks. A three-minute pause was then performed, and then treatment resumed. She received a total of 3000 shocks. Fragmentation was first noted at approximately 1000 shocks. Maximum power setting was done at 7.5 for the last 500 shocks. Intermittent two-plane fluoroscopy was used to ensure the crosshairs remained on the stone and stone fragment pile. At the conclusion of treatment, no significant stone fragments could be identified. Following this, she was then placed in the dorsal lithotomy position and prepped and draped in the usual sterile manner. Anesthetic cystoscopy was performed with the 21- Turkmen rigid sheath and 30-degree lens. She had a small amount of blood clots in the dependent portion of the bladder. The bladder was irrigated free of these. The stent was seen emanating from the right ureteral orifice. The distal end was grasped and gently removed intact from the right ureter. The scope was then reintroduced. The patient's bladder was drained through the cystoscopic sheath. A B and O suppository was given per rectum at the conclusion of the case. She was awakened in the operating room and taken to the recovery area in stable condition. PLAN The patient will be discharged home today on [place], Colace, Flomax, and Motrin. We will plan to see her in the Urology Clinic in approximately six to eight weeks for followup KUB and tomograms versus low-dose CT scan to evaluate treatment results and then proceed with metabolic evaluation. She has also been instructed to strain her urine and start the head-down protocol in one to two days. JOSELINE
== END 2017-08-23 11:29 | disposition home or self-care (01) ==
LOC: OR 00:28
PROVIDERS: ATTEND Urology
DX: N20.0 Calculus of kidney (principal); F31.9 Bipolar disorder, unspecified; F32.9 Major depressive disorder, single episode, unspecified; Z87.442 Personal history of urinary calculi
CPT/HCPCS: 36415; 50590; 52310; 74018; 81001; 85610; C1758; J1100; J1885; J2001; J2250; J2405; J2704; J3010; J0690; Q9966

== ENCOUNTER → 2017-09-05 | Outpatient (CLI) | payer OTHER, MEDICAID ==
[2015-04-24 12:28] VITALS: BMI 29.5
== END ==
LOC: LAB 17:22
PROVIDERS: ATTEND Urology
DX: R10.9 Unspecified abdominal pain (principal); M54.9 Dorsalgia, unspecified; N20.9 Urinary calculus, unspecified
CPT/HCPCS: 81001; 87088

== ENCOUNTER → 2017-10-02 | Outpatient (CLI) | payer OTHER, MEDICAID ==
[2015-04-24 12:28] VITALS: BMI 29.5
--- NOTE | 2017-10-02 12:32 | RADIOLOGY IMAGING REPORT ---
FACILITY: [facility] - [place] PATIENT NAME: Venecia Alonso : 1980 MR: [id number] V: [id number] EXAM DATE: ORDERING PHYSICIAN: MAI COTTO TECHNOLOGIST: Location: [facility] - [place] Patient: Venecia Alonso : 1980 Visit/Account:[id number] Date of Sevice: 10/02/2017 ABDOMEN PELVIS ESWL CYSTO W/O HISTORY: Kidney stones TECHNIQUE: Axial images acquired through the abdomen/pelvis. Coronal and sagittal reformatting also performed. No IV contrast administered. Dose Lowering Technique One of the following dose optimization techniques was utilized in the performance of this exam: Autom ated exposure control; adjustment of the mA and/or kV according to the patient's size; or use of an i terative reconstruction technique. Specific details can be referenced in the facility's radiology C T exam operational policy. COMPARISON: August 13, 2017 FINDINGS: Visualized lung bases: Negative. Hepatobiliary: Cholelithiasis although no evidence of biliary ductal dilatation. The liver is incom pletely imaged Spleen: Incompletely imaged. Calcified granuloma . History splenule Adrenals: Negative. Pancreas: Negative. Kidneys ureters and bladder: Previous stone at the right UPJ is no longer seen. No calcified occasio ns are identified in the renal collecting systems or ureters. Genitalia: Tubal ligation clips are present GI: Negative. Vessels/spaces/nodes: Several mildly prominent lymph nodes in the right lower quadrant appear stable Bones/soft tissues: There is an umbilical hernia containing fat Additional findings: None pertinent. IMPRESSION: Previously noted 7 mm calculus at the right UPJ is no longer seen. There is no evidence of urolithia sis, hydronephrosis or hydroureter at this time Cholelithiasis although no evidence of biliary ductal dilatation Calcified granuloma in the spleen Additional chronic findings as described Report Dictated By: Karrie Walter MD at 10/02/2017 12:13 PM Report E-Signed By: Karrie Walter MD at 10/02/2017 12:28 PM WSN:[email or web address]
== END ==
LOC: CT 10:54
PROVIDERS: ATTEND Urology
DX: K80.20 Calculus of gallbladder without cholecystitis without obstruction (principal); D73.89 Other diseases of spleen; Z98.890 Other specified postprocedural states; R59.0 Localized enlarged lymph nodes; K42.9 Umbilical hernia without obstruction or gangrene
CPT/HCPCS: 74176

== ENCOUNTER 2017-10-17 09:36 | Emergency (ER) | payer MEDICAID, OTHER ==
[2015-04-24 12:28] VITALS: Wt 83.9 kg
[2017-10-17] MEDS ORDERED: OLAN5TAB25 PO (09:47)
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
[2017-10-17] MEDS ORDERED: IOPAMIDOL 76% 75 ML INFUS BTL 75 ML ONE (10:50)
[2017-10-17] MEDS ORDERED: NS 0.9% 150 ML BAG 150 ML ONE (10:51)
[2017-10-17 11:07] LABS: PLATELET COUNT, AUTOMATED 325 K/uL (150-450)
[2017-10-17 11:31] VITALS: BP 151/115
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
--- NOTE | 2017-10-17 12:03 | RADIOLOGY IMAGING REPORT ---
FACILITY: [facility] PATIENT NAME: Venecia Alonso : 1980 MR: [id number] V: [id number] EXAM DATE: ORDERING PHYSICIAN: ROMAN MUJICA TECHNOLOGIST: Location: [facility] Patient: Venecia Alonso : 1980 Visit/Account:[id number] Date of Sevice: 10/17/2017 EXAMINATION: CTA Neck with intravenous contrast HISTORY: Trauma. TECHNIQUE: Overlapping thin sections were obtained during a bolus of IV contrast from the aortic ar ch through the [place]. Reconstruction of the source data set includes multiplanar 2D in the sagittal and coronal planes, and 3D coronal thin slab MIP series. Merchandise Worker images have been st ored on PACS. Stenosis of the internal carotid arteries are calculated using NASCET criteria. One of the following dose optimization techniques was utilized in the performance of this exam: Autom ated exposure control; adjustment of the mA and/or kV according to the patient's size; or use of an i terative reconstruction technique. Specific details can be referenced in the facility's radiology C T exam operational policy. CONTRAST: 75 mL of IV Isovue-370 COMPARISON: 11/22/2016. FINDINGS: Angiographic findings: Aortic arch and great vessels: Negative. Right CCA / ICA: Negative. Left CCA / ICA: Negative. Vertebro-basilar: Negative. [place]: Negative. Additional non-angiographic findings: No evidence of acute cervical spine fracture. IMPRESSION: 1. Normal CTA of the neck. 2. No evidence of acute cervical spine fracture. Report Dictated By: Arron Chandler MD at 10/17/2017 11:44 AM Report E-Signed By: Arron Chandler MD at 10/17/2017 11:58 AM WSN:[id number]
== END 2017-10-17 13:50 | disposition home or self-care (01) ==
LOC: SANE 09:46
DX: M54.2 Cervicalgia (principal); R51 Headache; M54.6 Pain in thoracic spine; Y04.8XXA Assault by other bodily force, initial encounter
CPT/HCPCS: 70450; 70498; 85025; 99284; Q9967; 82040; 82247; 82310; 82374; 82435; 82565; 82947; 84075; 84132; 84155; 84295; 84450; 84460; 84520

== ENCOUNTER → 2018-11-13 | Outpatient (CLI) | payer OTHER ==
[2015-04-24 12:28] VITALS: BMI 29.5
[~2018-11-13] MED LIST changes: -HYDR-4309 PO; +HYDR-653 PO; +OLAN5TAB25 PO; -TRAZ-156 PO; +TRAZ50TA34 PO
== END ==
LOC: LAB 14:09
PROVIDERS: ATTEND Obstetrics & Gynecology
DX: Z72.51 High risk heterosexual behavior (principal)
CPT/HCPCS: 86592; 86703; 86803; 87210; 87340; 87491; 87591